=== PATIENT | female | born 1960 | race Caucasian/White ===

== ENCOUNTER 2020-02-17 15:27 | Inpatient (IN) | payer BC, OTHER ==
[~2020-02-17] VITALS: Ht 163.8 cm; Wt 86.6 kg
[~2020-02-17 15:27] MED LIST: ALIS150T PO
[2020-02-17] MEDS ORDERED: NITROGLYCERIN 0.4MG TABLET SL SL PRN (16:00)
[2020-02-17] MEDS ORDERED: ASPIRIN 81MG TABLET PO ONE (16:00)
[2020-02-17 16:57] LABS: CLARITY URINE CLOUDY (CLEAR); COLOR URINE DARK YELLOW (YELLOW); KETONES URINE TRACE (NEGATIVE); LEUKOCYTE ESTERASE URINE 1+ (NEGATIVE); NITRITE URINE NEGATIVE (NEGATIVE); OCCULT BLOOD URINE NEGATIVE (NEGATIVE); PH URINE 5.5 (4.5-8.0); PROTEIN URINE 2+ (NEGATIVE); SPECIFIC GRAVITY URINE 1.025 (1.005-1.030)
[2020-02-17 17:28] LABS: BASOPHILS % 1.2 % (0.0-2.0); CHLORIDE 109 mEq/L (98-107); EOSINOPHILS % 2.4 % (0.0-5.0); HEMATOCRIT. 41.7 % (36.0-48.0); HEMOGLOBIN. 14.1 g/dL (12.0-16.0); LYMPHOCYTES % 25.2 % (20.0-50.0); MEAN CORPUSCULAR HEMOGLOBIN 30.3 pg (28.0-32.0); MEAN CORPUSCULAR VOLUME 89.4 fL (81.0-99.0); MEAN PLATELET VOLUME 10.3 fl (7.4-10.4); MONOCYTES % 8.5 % (2.0-8.0); NEUTROPHILS % 62.7 % (40.0-76.0); PLATELET 197 x1000/uL (130-400); RED BLOOD CELL COUNT 4.66 mill/uL (4.2-5.4); RED CELL DISTRIBUTION WIDTH 12.7 % (11.6-14.6)
[2020-02-17] MEDS ORDERED: LEVOFLOXACIN 500MG PREMIX 100 ML IV ONE (18:00)
[2020-02-17 21:30] VITALS: BP 177/87
[2020-02-17] MEDS ORDERED: METF-815 MT (21:48)
[2020-02-17] MEDS ORDERED: ATOR20TA65 MT (21:49)
[2020-02-17] MEDS ORDERED: AMLO10TA80 MT (21:50)
[2020-02-17] MEDS ORDERED: VALS160T28 MT (21:51)
[2020-02-17] MEDS ORDERED: ACETAMINOPHEN 325MG TABLET PO PRN (23:00)
[2020-02-17] MEDS ORDERED: DEXTROSE 50% WATER 50ML SYRINGE IV PRN (23:00)
[2020-02-17] MEDS ORDERED: ONDANSETRON HCL 4MG/2ML INJ IV PRN (23:00)
[2020-02-17] MEDS: METOPROLOL TARTRATE 50MG TABLET PO SCH (23:17)
[2020-02-17] MEDS ORDERED: PNEUMOCOCCAL 23-VAL P-SAC VAC 0.5 ML IM ONE (23:30)
[2020-02-18] VITALS (7 sets, daily range): BP systolic 137–168; BP diastolic 62–108
[2020-02-18] MEDS: CLONIDINE 0.1MG TABLET PO PRN ×2 (04:45→18:06)
[2020-02-18] MEDS: INSULIN LISPRO 100 UNITS/ML SUBCUT SCH ×4 (06:10→20:32)
[2020-02-18] MEDS: BLOOD SUGAR DIAGNOSTIC STRIP TEST SCH ×4 (06:10→20:32)
[2020-02-18] MEDS: PANTOPRAZOLE 40MG DR TABLET PO SCH (06:15)
[2020-02-18 07:34] LABS: BASOPHILS % 1.2 % (0.0-2.0); EOSINOPHILS % 3.3 % (0.0-5.0); HEMOGLOBIN. 14.3 g/dL (12.0-16.0); MEAN CORPUSCULAR HEMOGLOBIN 29.9 pg (28.0-32.0); MEAN CORPUSCULAR VOLUME 89.9 fL (81.0-99.0); MEAN PLATELET VOLUME 9.8 fl (7.4-10.4); MONOCYTES % 8.3 % (2.0-8.0); NEUTROPHILS % 56.2 % (40.0-76.0); PLATELET 210 x1000/uL (130-400); RED BLOOD CELL COUNT 4.78 mill/uL (4.2-5.4); RED CELL DISTRIBUTION WIDTH 12.8 % (11.6-14.6)
[2020-02-18 07:48] LABS: CHLORIDE 109 mEq/L (98-107)
[2020-02-18 07:55] LABS: LDL CHOLESTEROL 109 mg/dL (5-100)
[2020-02-18 07:57] LABS: CREATINE KINASE 90 IU/L (26-192); HDL CHOLESTEROL 56 mg/dL (40-59)
[2020-02-18 07:59] LABS: CREATINE KINASE MB FRACTION < 1.0 ng/mL (0.5-3.6)
[2020-02-18] MEDS ORDERED: MEDICATION NOT ON FORMULARY EA (Metformin HCl (Metformin HCl ER) 1 TAB) MT SCH (09:00)
[2020-02-18] MEDS ORDERED: MEDICATION NOT ON FORMULARY EA (Valsartan 1 TAB) MT SCH (09:00)
[2020-02-18] MEDS: LOSARTAN POTASSIUM 100 MG TABLET PO SCH (09:08)
[2020-02-18] MEDS: METFORMIN HCL 500MG TABLET PO SCH (09:08)
[2020-02-18] MEDS: ASPIRIN 81MG TABLET PO SCH (09:09)
[2020-02-18] MEDS: ENOXAPARIN 40MG/0.4ML SYR SUBCUT SCH (09:10)
[2020-02-18] MEDS: METOPROLOL TARTRATE 50MG TABLET PO SCH ×2 (09:15→20:57)
[2020-02-18 11:45] LABS: BG BASE EXCESS -2.9 mmol/L (-2.0-2.0); BG CARBOXYHEMOGLOBIN 0.6 % (0.5-1.5); BG DEOXYHEMOGLOBIN 7.5 % (0.0-5.0); BG FRACTION INSPIRED OXYGEN 21; BG HCO3 ACT 22.6 mmol/L (22.0-26.0); BG METHEMOGLOBIN 0.3 % (0.0-1.5); BG OXYGEN SATURATION 92.4 % (92.0-98.5); BG OXYHEMOGLOBIN 91.6 % (94.0-97.0); BG PCO2 41.9 mmHg (35.0-45.0); BG PH 7.349 (7.350-7.450); BG PO2 66.8 mmHg (75.0-100.0); BG SAMPLE SITE LEFT RADIAL; BG TOTAL HEMOGLOBIN 13.5 g/dL (12.0-18.0); BG VENT MODE ROOM AIR
[2020-02-18 13:32] LABS: D-DIMER 0.51 mg/L FEU (<0.50); PROTHROMBIN TIME 10.7 sec (9.6-11.0)
[2020-02-18] MEDS ORDERED: REGADENOSON 0.4 MG/5 ML IV SCH (14:30)
[2020-02-18 16:50] LABS: CREATINE KINASE 85 IU/L (26-192)
[2020-02-18 16:53] LABS: CREATINE KINASE MB FRACTION < 1.0 ng/mL (0.5-3.6)
[2020-02-18] MEDS: AMLODIPINE 5MG TABLET PO SCH (20:57)
[2020-02-18] MEDS ORDERED: ATORVASTATIN CALCIUM 40MG TABLET PO SCH (21:00)
[2020-02-18] MEDS ORDERED: ATORVASTATIN CALCIUM 20MG TABLET PO SCH (21:00)
[2020-02-19] VITALS: BP 135/77
[2020-02-19 00:06] LABS: CREATINE KINASE 75 IU/L (26-192)
[2020-02-19 00:08] LABS: CREATINE KINASE MB FRACTION < 1.0 ng/mL (0.5-3.6)
[2020-02-19 04:00] VITALS: BP 126/70
[2020-02-19] MEDS: BLOOD SUGAR DIAGNOSTIC STRIP TEST SCH ×3 (05:40→17:04)
[2020-02-19] MEDS: INSULIN LISPRO 100 UNITS/ML SUBCUT SCH ×3 (05:40→17:04)
[2020-02-19] MEDS: PANTOPRAZOLE 40MG DR TABLET PO SCH (05:40)
[2020-02-19 06:03] LABS: BASOPHILS % 1.2 % (0.0-2.0); EOSINOPHILS % 3.2 % (0.0-5.0); HEMATOCRIT. 38.5 % (36.0-48.0); HEMOGLOBIN. 12.9 g/dL (12.0-16.0); LYMPHOCYTES % 27.9 % (20.0-50.0); MEAN CORPUSCULAR VOLUME 89.8 fL (81.0-99.0); MEAN PLATELET VOLUME 10.9 fl (7.4-10.4); MONOCYTES % 8.6 % (2.0-8.0); NEUTROPHILS % 59.1 % (40.0-76.0); PLATELET 196 x1000/uL (130-400); RED BLOOD CELL COUNT 4.29 mill/uL (4.2-5.4); RED CELL DISTRIBUTION WIDTH 12.6 % (11.6-14.6)
[2020-02-19] MEDS: METFORMIN HCL 500MG TABLET PO SCH (07:40)
[2020-02-19 08:00] VITALS: BP 144/92
[2020-02-19] MEDS: AMLODIPINE 5MG TABLET PO SCH (09:00)
[2020-02-19] MEDS: ENOXAPARIN 40MG/0.4ML SYR SUBCUT SCH (09:00)
[2020-02-19] MEDS: LOSARTAN POTASSIUM 100 MG TABLET PO SCH (09:00)
[2020-02-19] MEDS: METOPROLOL TARTRATE 50MG TABLET PO SCH (09:00)
[2020-02-19] MEDS: ASPIRIN 81MG TABLET PO SCH (09:00)
[2020-02-19 12:00] VITALS: BP 147/88
[2020-02-19] MEDS ORDERED: ASPI-1497 MT (13:43)
[2020-02-19] MEDS ORDERED: FURO-152 MT (13:43)
[2020-02-19] MEDS ORDERED: LIP40 MT (13:43)
[2020-02-19] MEDS ORDERED: COR3 MT (13:43)
[2020-02-19 15:03] VITALS: BP 147/88
[2020-02-19] MEDS ORDERED: VALS160T28 PO (15:41)
[2020-02-19] MEDS ORDERED: COR6 MT (15:41)
[2020-02-19] MEDS ORDERED: SPIR25TA6 MT (15:41)
[2020-02-19 16:00] VITALS: BP 135/77
[2020-02-19] MEDS ORDERED: FAMOTIDINE 20MG TABLET PO SCH (17:10)
[2020-02-19] MEDS ORDERED: CARVEDILOL 6.25 MG TABLET PO SCH (21:00)
[2020-02-20] MEDS ORDERED: SPIRONOLACTONE 25MG TABLET PO SCH (09:00)
== END 2020-02-19 17:35 | disposition home or self-care (01) | DRG 305 ==
LOC: ER 15:27 → 8WST 19:07 → EDBEDREQTM 19:12 → EDBEDREQ 19:12 → ENRESERV 20:16 → 8WST 23:09
PROVIDERS: ADMIT Internal Medicine; ATTEND Internal Medicine
DX: I16.0 Hypertensive urgency (principal); I42.9 Cardiomyopathy, unspecified; R07.9 Chest pain, unspecified; E66.9 Obesity, unspecified; E11.9 Type 2 diabetes mellitus without complications; E78.5 Hyperlipidemia, unspecified; I10 Essential (primary) hypertension; E78.00 Pure hypercholesterolemia, unspecified; Z88.0 Allergy status to penicillin; Z88.8 Allergy status to other drugs, medicaments and biological substances; Z68.32 Body mass index [BMI] 32.0-32.9, adult; Z79.84 Long term (current) use of oral hypoglycemic drugs; Z79.899 Other long term (current) drug therapy
CPT/HCPCS: 36415; 36600; 71045; 78452; 80048; 80053; 80061; 81003; 82375; 82550; 82553; 82805; 82962; 83036; 84484; 85025; 85379; 90732; 93005; 93017; 93306; 99285; A9500; J1650; J1956

== ENCOUNTER 2022-02-14 12:19 | Inpatient (IN) | payer BC, OTHER ==
[~2022-02-14] VITALS: Ht 157.5 cm; Wt 90.3 kg
[~2022-02-14 12:19] MED LIST changes: -ALIS150T PO; +AMLO10TA80 MT; +ASPI-1497 MT; +COR6 MT; +LIP40 MT; +METF-873 MT; +SPIR25TA6 MT; +VALS160T28 PO
[2022-02-14] MEDS ORDERED: SODIUM CHLORIDE 0.9% 500 ML IV ONE (16:30)
[2022-02-14] MEDS ORDERED: ACETAMINOPHEN 325MG TABLET PO ONE (16:30)
[2022-02-14 16:40] LABS: CHLORIDE 108 mEq/L (98-107)
[2022-02-14 16:41] LABS: INR 0.9; PROTHROMBIN TIME 10.1 sec (9.6-11.0)
[2022-02-14 17:00] LABS: BASOPHILS % 1.1 % (0.0-2.0); EOSINOPHILS % 4.5 % (0.0-5.0); HEMATOCRIT. 43.3 % (36.0-48.0); HEMOGLOBIN. 14.1 g/dL (12.0-16.0); LYMPHOCYTES % 39.5 % (20.0-50.0); MEAN CORPUSCULAR HEMOGLOBIN 30.3 pg (28.0-32.0); MEAN CORPUSCULAR VOLUME 92.9 fL (81.0-99.0); MEAN PLATELET VOLUME 10.4 fl (7.4-10.4); MONOCYTES % 8.5 % (2.0-8.0); NEUTROPHILS % 46.4 % (40.0-76.0); PLATELET 188 x1000/uL (130-400); RED BLOOD CELL COUNT 4.66 mill/uL (4.2-5.4); RED CELL DISTRIBUTION WIDTH 13.3 % (11.6-14.6)
[2022-02-14 17:41] LABS: CLARITY URINE CLEAR (CLEAR); COLOR URINE YELLOW (YELLOW); KETONES URINE NEGATIVE (NEGATIVE); LEUKOCYTE ESTERASE URINE NEGATIVE (NEGATIVE); NITRITE URINE NEGATIVE (NEGATIVE); OCCULT BLOOD URINE NEGATIVE (NEGATIVE); PH URINE 5.5 (4.5-8.0); PROTEIN URINE TRACE (NEGATIVE); SPECIFIC GRAVITY URINE 1.018 (1.005-1.030); UROBILINOGEN URINE 0.2 E.U./dL (0.2-1.0)
[2022-02-14 22:00] VITALS: BP 153/81
[2022-02-14] MEDS ORDERED: ASPIRIN 325MG EC TABLET PO ONE (22:15)
[2022-02-14 22:50] VITALS: BP 167/100
[2022-02-14] MEDS ORDERED: FURO20TA4 MT (23:16)
[2022-02-14] MEDS ORDERED: PROT40 MT (23:16)
[2022-02-14] MEDS ORDERED: ATOR40TA70 MT (23:16)
[2022-02-14] MEDS ORDERED: CARV6.2548 MT (23:16)
[2022-02-14] MEDS ORDERED: SACU1TAB4 MT (23:16)
[2022-02-14] MEDS ORDERED: ASPI-1497 PO (23:16)
[2022-02-14] MEDS ORDERED: COLC0.6C3 MT (23:16)
[2022-02-14] MEDS ORDERED: METF-414 MT (23:16)
[2022-02-15] VITALS: BP 167/100
[2022-02-15] MEDS ORDERED: ONDANSETRON HCL 4MG/2ML INJ IV PRN
[2022-02-15] MEDS ORDERED: ACETAMINOPHEN 325MG TABLET PO PRN
[2022-02-15] MEDS ORDERED: DEXTROSE 50% WATER 50ML SYRINGE IV PRN
[2022-02-15] MEDS ORDERED: HYDRALAZINE 20MG/ML VIAL IV PRN
[2022-02-15] MEDS ORDERED: TEMAZEPAM 15MG CAPSULE PO PRN
[2022-02-15] MEDS ORDERED: NITROGLYCERIN OINT 1GM/INCH UDPKT TD PRN
[2022-02-15] MEDS: CARVEDILOL 12.5MG TABLET PO SCH ×3 (00:47→21:03)
[2022-02-15] MEDS: LOSARTAN POTASSIUM 50 MG TABLET PO SCH ×2 (00:47→09:00)
[2022-02-15 04:00] VITALS: BP 122/80
[2022-02-15] MEDS: BLOOD SUGAR DIAGNOSTIC STRIP TEST SCH ×4 (06:40→21:03)
[2022-02-15] MEDS: INSULIN LISPRO 100 UNITS/ML SUBCUT SCH ×4 (07:10→21:00)
[2022-02-15 08:00] VITALS: BP 139/80
[2022-02-15] MEDS: METFORMIN HCL 500MG TABLET PO SCH ×2 (08:00→18:07)
[2022-02-15 08:21] LABS: BASOPHILS % 1.4 % (0.0-2.0); EOSINOPHILS % 5.1 % (0.0-5.0); HEMATOCRIT. 38.9 % (36.0-48.0); LYMPHOCYTES % 34.7 % (20.0-50.0); MEAN CORPUSCULAR HEMOGLOBIN 30.2 pg (28.0-32.0); MEAN CORPUSCULAR VOLUME 90.3 fL (81.0-99.0); MEAN PLATELET VOLUME 10.8 fl (7.4-10.4); MONOCYTES % 8.8 % (2.0-8.0); PLATELET 180 x1000/uL (130-400); RED BLOOD CELL COUNT 4.31 mill/uL (4.2-5.4); RED CELL DISTRIBUTION WIDTH 12.8 % (11.6-14.6)
[2022-02-15 08:34] LABS: CHLORIDE 107 mEq/L (98-107)
[2022-02-15 09:00] LABS: HDL CHOLESTEROL 55 mg/dL (40-59); LDL CHOLESTEROL 44 mg/dL (5-100)
[2022-02-15] MEDS: ASPIRIN 81MG TABLET PO SCH (09:00)
[2022-02-15] MEDS ORDERED: ENOXAPARIN 40MG/0.4ML SYR SUBCUT SCH (09:00)
[2022-02-15] MEDS: PANTOPRAZOLE 40MG DR TABLET PO SCH (09:00)
[2022-02-15] MEDS: FUROSEMIDE 40MG TABLET PO SCH (09:00)
[2022-02-15 12:00] VITALS: BP 140/72
[2022-02-15] MEDS ORDERED: REGADENOSON 0.4 MG/5 ML IV NR (14:30)
[2022-02-15 16:00] VITALS: BP 152/95
[2022-02-15] MEDS: ENOXAPARIN 30MG/0.3ML SYR SUBCUT SCH (18:06)
[2022-02-15] MEDS ORDERED: ATORVASTATIN CALCIUM 40MG TABLET PO SCH (21:00)
[2022-02-16 04:00] VITALS: BP 97/54
[2022-02-16] MEDS: BLOOD SUGAR DIAGNOSTIC STRIP TEST SCH ×2 (06:16→11:40)
[2022-02-16] MEDS: INSULIN LISPRO 100 UNITS/ML SUBCUT SCH ×2 (07:10→12:10)
[2022-02-16 07:13] LABS: BASOPHILS % 1.1 % (0.0-2.0); EOSINOPHILS % 4.7 % (0.0-5.0); HEMATOCRIT. 38.2 % (36.0-48.0); HEMOGLOBIN. 12.9 g/dL (12.0-16.0); MEAN CORPUSCULAR HEMOGLOBIN 30.4 pg (28.0-32.0); MEAN CORPUSCULAR VOLUME 89.9 fL (81.0-99.0); MEAN PLATELET VOLUME 10.6 fl (7.4-10.4); MONOCYTES % 8.5 % (2.0-8.0); NEUTROPHILS % 46.7 % (40.0-76.0); PLATELET 173 x1000/uL (130-400); RED BLOOD CELL COUNT 4.25 mill/uL (4.2-5.4); RED CELL DISTRIBUTION WIDTH 12.7 % (11.6-14.6)
[2022-02-16 08:00] VITALS: BP 119/76
[2022-02-16 10:17] LABS: *AMPHETAMINES SCREEN URINE NEGATIVE (NEGATIVE); *BARBITURATES SCREEN URINE NEGATIVE (NEGATIVE); *BENZODIAZEPINES SCREEN URINE NEGATIVE (NEGATIVE); *COCAINE SCREEN URINE NEGATIVE (NEGATIVE); CANNABINOID URINE SCREEN NEGATIVE (NEGATIVE); METHADONE URINE SCREEN NEGATIVE (NEGATIVE); OPIATES URINE SCREEN NEGATIVE (NEGATIVE); PHENCYCLIDINE URINE SCREEN NEGATIVE (NEGATIVE)
[2022-02-16] MEDS ORDERED: REGADENOSON 0.4 MG/5 ML IV ONE (10:34)
[2022-02-16 13:00] VITALS: BP 120/54
[2022-02-16] MEDS: LOSARTAN POTASSIUM 50 MG TABLET PO SCH (13:36)
[2022-02-16] MEDS: PANTOPRAZOLE 40MG DR TABLET PO SCH (13:36)
[2022-02-16] MEDS: METFORMIN HCL 500MG TABLET PO SCH (13:36)
[2022-02-16] MEDS: ENOXAPARIN 30MG/0.3ML SYR SUBCUT SCH (13:36)
[2022-02-16] MEDS: ASPIRIN 81MG TABLET PO SCH (13:37)
[2022-02-16] MEDS: CARVEDILOL 12.5MG TABLET PO SCH (13:38)
[2022-02-16] MEDS: FUROSEMIDE 40MG TABLET PO SCH (13:38)
[2022-02-16 16:00] VITALS: BP 145/94
[2022-02-16 17:02] VITALS: BP 119/76
[2022-02-17] MEDS ORDERED: FAMOTIDINE 20MG TABLET PO SCH (09:00)
== END 2022-02-16 17:40 | disposition home or self-care (01) | DRG 282 ==
LOC: ER 12:19 → ENRESERV 20:49 → 7EST 21:07 → EDBEDREQTM 21:31 → EDBEDREQ 21:31
PROVIDERS: ADMIT Internal Medicine; ATTEND Internal Medicine
DX: I21.4 Non-ST elevation (NSTEMI) myocardial infarction (principal); I16.0 Hypertensive urgency; E11.9 Type 2 diabetes mellitus without complications; E78.5 Hyperlipidemia, unspecified; E66.9 Obesity, unspecified; E78.00 Pure hypercholesterolemia, unspecified; I25.10 Atherosclerotic heart disease of native coronary artery without angina pectoris; Z20.822 Contact with and (suspected) exposure to COVID-19; I10 Essential (primary) hypertension; I36.1 Nonrheumatic tricuspid (valve) insufficiency; Z79.84 Long term (current) use of oral hypoglycemic drugs; Z86.73 Personal history of transient ischemic attack (TIA), and cerebral infarction without residual deficits; Z88.0 Allergy status to penicillin; Z79.82 Long term (current) use of aspirin; Z79.899 Other long term (current) drug therapy; Z68.36 Body mass index [BMI] 36.0-36.9, adult
CPT/HCPCS: 36415; 71045; 78452; 80048; 80053; 80061; 80305; 81003; 82962; 83036; 83880; 84484; 85025; 85379; 87426; 93005; 93017; 93306; 93880; 99291; A9500; J1650; J2785; J7040